=== PATIENT | female | born 1930 | race Caucasian/White ===

== ENCOUNTER 2016-12-09 11:19 | Emergency (ER) | payer OTHER ==
[~2016-12-09] VITALS: Ht 160 cm; Wt 75.0 kg
[2016-12-09 11:22] VITALS: BP 224/95; TEMP 97.6
[2016-12-09] MEDS ORDERED: COZAAR 50MG50 MG/TAB PO (11:25)
[2016-12-09] MEDS ORDERED: NORCO 325 MG-51 TAB PO (12:28)
[2016-12-09 12:50] VITALS: PULSE 66
== END 2016-12-09 13:02 | disposition home or self-care (01) ==
LOC: COL.ER 11:19
DX: S22.41XA Multiple fractures of ribs, right side, initial encounter for closed fracture (principal); I10 Essential (primary) hypertension; R01.1 Cardiac murmur, unspecified; W18.30XA Fall on same level, unspecified, initial encounter; I35.0 Nonrheumatic aortic (valve) stenosis
CPT/HCPCS: A9284

== ENCOUNTER 2016-12-11 04:02 | Emergency (ER) | payer OTHER ==
[~2016-12-11] VITALS: Ht 160 cm; Wt 75.0 kg
[~2016-12-11 04:02] MED LIST: COZAAR 50MG50 MG/TAB PO; NORCO 325 MG-51 TAB PO
[2016-12-11 04:05] VITALS: TEMP 97
[2016-12-11] MEDS ORDERED: DITROPAN 5MG TAB5 MG PO (04:09)
[2016-12-11] MEDS ORDERED: SALONPAS (04:10)
[2016-12-11] MEDS ORDERED: ASPIRIN 81M81 MG/TA2 PO (04:10)
[2016-12-11] MEDS ORDERED: ASPIRIN 32325 MG/TAB PO (04:10)
[2016-12-11 04:58] LABS: BASO # 0.1 (0.0-0.2); BASO % 0.9 % (0.0-2.0); EOS # 0.1 (0.0-0.7); GRAN # 5.4 (1.4-6.5); GRAN % 67.1 % (42.2-75.2); HEMATOCRIT 38.8 % (37.0-47.0); LYMPH # 1.8 (1.2-3.4); LYMPH % 22.2 % (20.0-51.0); MEAN CELL VOLUME 92 fl (80.0-100.0); MEAN CORPUSCULAR HEMOGLOBIN 31 pg (27.0-31.0); MEAN CORPUSCULAR HGB CONC 34 g/dl (33.0-37.0); MEAN PLATELET VOLUME 9.9 fl (7.4-10.4); MONO # 0.7 (0.1-0.6); MONO % 8.6 % (1.7-9.3); PLATELET COUNT 182 K/mm3 (130-400); REDCELL DISTRIBUTION WIDTH-CV 13.1 % (11.5-14.5); WHITE BLOOD COUNT 8.1 K/mm3 (4.8-10.8)
[2016-12-11 05:06] LABS: ADJUSTED CALCIUM 9.2 mg/dL (8.4-10.2); ALBUMIN 4.1 gm/dL (3.5-5.0); CALCIUM 9.3 mg/dL (8.4-10.2); CREATININE, serum 0.84 mg/dL (0.52-1.25); POTASSIUM 3.8 mmol/L (3.4-5.0); TOTAL PROTEIN 7.2 gm/dL (6.4-8.2)
[2016-12-11] MEDS ORDERED: NAPROSYN 2250 MG/TAB PO (06:32)
[2016-12-11 07:38] VITALS: BP 139/80; PULSE 77
== END 2016-12-11 07:38 | disposition home or self-care (01) ==
LOC: COL.ER 04:02
PROVIDERS: Emergency Medicine
DX: S22.41XD Multiple fractures of ribs, right side, subsequent encounter for fracture with routine healing (principal); W19.XXXD Unspecified fall, subsequent encounter
CPT/HCPCS: J1885; J7040

== ENCOUNTER → 2017-02-10 | Outpatient (CLI) | payer MEDICARE ==
[~2017-02-10] MED LIST changes: +ASPIRIN 32325 MG/TAB PO; +ASPIRIN 81M81 MG/TA2 PO; +DITROPAN 5MG TAB5 MG PO; +NAPROSYN 2250 MG/TAB PO; +SALONPAS
== END ==
LOC: MC.RAD 10:30
DX: Z12.31 Encounter for screening mammogram for malignant neoplasm of breast (principal)

== ENCOUNTER → 2017-02-26 | Outpatient (CLI) | payer MEDICARE, OTHER | LOC: MC.RAD 13:03 | DX: R92.2 Inconclusive mammogram (principal); N64.89 Other specified disorders of breast; Z85.3 Personal history of malignant neoplasm of breast ==

== ENCOUNTER → 2018-05-14 | Outpatient (CLI) | payer OTHER | LOC: MC.RAD 11:04 | DX: Z12.31 Encounter for screening mammogram for malignant neoplasm of breast (principal) ==

== ENCOUNTER → 2019-12-27 | Outpatient (CLI) | payer MEDICARE | LOC: COL.VAS 13:48 | DX: I08.3 Combined rheumatic disorders of mitral, aortic and tricuspid valves (principal); I10 Essential (primary) hypertension ==